=== PATIENT | female | born 1960 | race Caucasian/White ===

== ENCOUNTER 2022-03-15 08:57 | Outpatient (CLI) | payer OTHER, SELFPAY ==
[2022-03-15 13:38] LABS: Aspartate Amino Transferase* 23 U/L (12-35); Cholesterol* 221 mg/dL (90-199)
[2022-03-15 13:39] LABS: Alanine Aminotransferase* 20 U/L (4-35); HDL Cholesterol* 47 mg/dL (>=50); LDL Cholesterol Calculated 132 mg/dL (<100); Triglycerides* 210 mg/dL (40-149)
== END 2022-03-15 08:58 | disposition home or self-care (01) ==
PROVIDERS: PCP Physician Assistant Medical; Visit Provider Physician Assistant Medical
DX: E78.5 Hyperlipidemia, unspecified (principal)
CPT/HCPCS: 80061; 84450; 84460

== ENCOUNTER 2022-04-08 11:30 | Outpatient (CLI) | payer OTHER, SELFPAY ==
[2022-04-08 12:02] LABS: Blood Urea Nitrogen POC* 19 mg/dl (8-26); Carbon Dioxide Point of Care* 23 mmol/L (20-32); Chloride Point of Care* 107 mmol/L (98-109); Creatinine Point of Care* 0.7 mg/dl (0.6-1.3); Ionized Calcium Point of Care* 1.19 mmol/L (1.11-1.33); Potassium Point of Care* 4.2 mmol/L (3.5-4.9); Sodium Point of Care* 140 mmol/L (138-146)
[2022-04-08 12:03] LABS: Glucose IStat Point of Care 94 mg/dl (60-115)
[2022-04-08 12:12] LABS: Hematocrit 40.8 % (33.0-51.0); Hemoglobin* 13.6 gm/dL (12.0-16.0); Mean Corpuscular HGB Conc 33 gm/dL (32-36); Mean Corpuscular Hemoglobin 29 pg (26-34); Mean Corpuscular Volume 88 fL (80-100); Platelet Count* 212 K/uL (140-440); Red Blood Count 4.62 m/uL (4.00-5.20); White Blood Count* 8.82 K/uL (4.50-11.00)
[2022-04-08 12:16] LABS: Slide Review Reflex No
[2022-04-08 22:25] LABS: Vitamin B12* 257 pg/mL (243-894)
== END 2022-04-08 11:31 | disposition home or self-care (01) ==
PROVIDERS: PCP Physician Assistant Medical; Visit Provider Physician Assistant Medical
DX: I10 Essential (primary) hypertension (principal); E03.9 Hypothyroidism, unspecified; G89.29 Other chronic pain
CPT/HCPCS: 82607; 84443; 85027

== ENCOUNTER 2022-04-26 15:01 | Outpatient (CLI) | payer OTHER, SELFPAY ==
--- NOTE | 2022-04-26 15:20 | CRLHL7_ITS ---
For Patients: As a result of the Century Cures Act, medical imaging exams and procedure reports are released immediately into your electronic medical record. You may view this report before your referring provider. If you have questions, please contact your health care provider. BILATERAL SCREENING MAMMOGRAM WITH COMPUTER-AIDED DETECTION AND TOMOSYNTHESIS TECHNIQUE: CC and MLO views were obtained. These mammographic images have been obtained using full-field digital technique. These mammographic images were interpreted with the benefit of computer-aided detection. Breast Tomosynthesis was used in this interpretation. COMPARISON FILM: 05/26/18, 07/27/11, 05/06/10. FINDINGS: There are scattered areas of fibroglandular density IMPRESSION: There is no radiographic evidence for malignancy. ASSESSMENT: BI-RADS Category 1: Negative RECOMMENDATION: Routine screening mammogram in 1 year. A lay language report of this examination will be provided to the patient. Lc Malhotra M.D. Diagnostic Radiologist [email or web address] MIGUE LANGEL/Dictated by: Lc Malhotra MD @ 04/27/2022 9:12:00 AM (Electronically Signed)
== END 2022-04-26 15:02 | disposition home or self-care (01) ==
LOC: MAMMO 15:01
PROVIDERS: PCP Physician Assistant Medical; Visit Provider Physician Assistant Medical
DX: Z12.31 Encounter for screening mammogram for malignant neoplasm of breast (principal)
CPT/HCPCS: 77063; 77067

== ENCOUNTER 2023-11-08 08:52 | Outpatient (CLI) | payer BC, SELFPAY ==
--- NOTE | 2023-11-08 09:15 | MM_ITS ---
Patient: LIZETH JIMENEZ Facility:?[facility] Patient ID:?[id number] Site Patient ID:?[id number]. Site :?1960 Study:?XRay-Breast Bilateral 3D W/CAD-11/08/2023 9:32:18 AM Ordering Physician:Jessenia Final Report: BILATERAL SCREENING MAMMOGRAM WITH COMPUTER-AIDED DETECTION AND TOMOSYNTHESIS TECHNIQUE: CC and MLO views were obtained. These mammographic images have been obtained using full-field digital technique. These mammographic images were interpreted with the benefit of computer-aided detection. Breast Tomosynthesis was used in this interpretation. COMPARISON FILM: 04/26/22, 05/26/18, 07/27/11. FINDINGS: There are scattered areas of fibroglandular density. IMPRESSION: There is no radiographic evidence for malignancy. ASSESSMENT: BI-RADS Category 1: Negative RECOMMENDATION: Routine screening mammogram in 1 year. A lay language report of this examination will be provided to the patient. Lc Malhotra M.D. Diagnostic Radiologist [email or web address] TREVOR/sp R& Transcribed: 1:58 p.m. SP/Dictated by: Lc Malhotra MD @ 11/08/2023 12:25:00 PM Signed by:?cL Malhotra MD @11/08/2023 3:20:01 PM (Electronic Signature)
== END 2023-11-08 08:53 | disposition home or self-care (01) ==
LOC: MAMMO 08:54
PROVIDERS: PCP Physician Assistant Medical; Visit Provider Physician Assistant Medical
DX: Z12.31 Encounter for screening mammogram for malignant neoplasm of breast (principal)
CPT/HCPCS: 77063; 77067

== ENCOUNTER 2023-12-22 08:20 | Outpatient (CLI) | payer BC, SELFPAY | END 2023-12-22 08:21 | disposition home or self-care (01) | LOC: NFLDREF 01-10 12:56 | PROVIDERS: PCP Physician Assistant Medical; Referring Provider Physician Assistant Medical; Visit Provider Physician Assistant Medical | DX: E78.5 Hyperlipidemia, unspecified (principal); E03.9 Hypothyroidism, unspecified; I10 Essential (primary) hypertension | CPT/HCPCS: 80053; 80061; 84443 ==

== ENCOUNTER 2024-06-19 08:55 | Outpatient (CLI) | payer BC, SELFPAY ==
--- NOTE | 2024-06-19 09:15 | MR_ITS ---
[address] [address] Phone:?[phone] Fax:?[phone] Referring Physician Information: Vasile Ya M.D. [address] [facility] [address] Phone:?[phone] Fax:?[phone] Patient:Trista Ureña D.O.B:?1960 Sex:?Female Phone:?[phone] [facility] MRN:?[id number] Exam Date:?06/19/2024 EXAM: MRI of the RIGHT KNEE, without contrast CLINICAL: Right knee pain. Evaluate for medial meniscal tear. COMPARISONS: X-rays dated 05/10/2024. TECHNICAL: Multiplanar multisequence MRI of the right knee was obtained. SEDATION: None. CONTRAST: None. FINDINGS: Ligaments: ACL: Intact and unremarkable. PCL: Intact and unremarkable. MCL: Intact and unremarkable. LCL: Intact and unremarkable. Posterolateral corner: Popliteus, biceps femoris, iliotibial band, and the popliteofibular ligament appear intact. Posteromedial corner: Semimembranosus, pes anserine tendons and posterior oblique ligament appear intact. Extensor mechanism: Patellar tendon: Intact, without tendinopathy. Quadriceps tendon: Intact, without tendinopathy. Retinacula: Medial and lateral retinacula are intact. Fat pads: Unremarkable infrapatellar Hoffa's, quadriceps and prefemoral fat pads. Patellofemoral joint: Patella: There is full-thickness chondral loss involving the medial patellar facet and patellar median ridge with mild underlying subchondral edema/cystic change. There is moderate chondral thinning involving the lateral facet with focal deep chondral fissure involving the lateral facet on axial series 4 image 10. Small subchondral cystic change involving the peripheral lateral patellar facet also noted. Trochlea: There is mild heterogeneity of the trochlear cartilage. No chondral defect. Medial compartment: Medial meniscus: There is high-grade convex tearing involving the posterior root on sagittal series 6 images 18-19. Slight 2 mm of medial extrusion of the peripheral body segment. Medial cartilage: Grade 3 chondral loss involves the weightbearing extending into the junction with the posterior nonweightbearing medial femoral condyle. Medial tibial plateau cartilage is maintained. Lateral compartment: Lateral meniscus: No evidence of discrete meniscal tear or meniscal displacement. Lateral cartilage: There is heterogeneity of the lateral tibial plateau. No chondral defects. Knee joint: Effusion: Small right knee effusion. Intra-articular bodies:?Small intra-articular body within the posterior joint recess adjacent to the PCL as seen on sagittal series 5 image 18. Popliteal cyst: None. Bones: Mild reactive marrow edema and small cystic change involves the lateral aspect of the posterior medial tibial plateau. No evidence of fracture. IMPRESSION: 1. High-grade complex tearing involving the posterior root medial meniscus with slight medial extrusion of the peripheral body segment medial meniscus. 2. Full-thickness chondral loss involving the patella with grade 3 chondral loss involving the medial femoral condyle. 3. Small joint effusion with a small intra-articular body within the posterior joint recess. 4. No evidence of ligamentous injury or fracture. JCZ Electronically signed on 06/19/2024 11:28:00 AM by Zen Tijerina D.O.
--- NOTE | 2024-06-19 10:15 | MR_ITS ---
[address] [address] Phone:?[phone] Fax:?[phone] Referring Physician Information: Vasile Ya M.D. [address] [facility] [address] Phone:?[phone] Fax:?[phone] Patient:Trista Ureña D.O.B:?1960 Sex:?Female Phone:?[phone] [facility] MRN:?[id number] Exam Date:?06/19/2024 EXAM: MRI of the LEFT KNEE, without contrast CLINICAL: Left knee pain. Evaluate for medial meniscal tear. COMPARISONS: X-rays dated 05/10/2024. TECHNICAL: Multiplanar multisequence MRI of the left knee was obtained. SEDATION: None. CONTRAST: None. FINDINGS: Ligaments: ACL: Intact and unremarkable. PCL: Intact and unremarkable. MCL: Intact and unremarkable. LCL: Intact and unremarkable. Posterolateral corner: Popliteus, biceps femoris, iliotibial band, and the popliteofibular ligament appear intact. Posteromedial corner: Semimembranosus, pes anserine tendons and posterior oblique ligament appear intact. Extensor mechanism: Patellar tendon: Intact, without tendinopathy. Quadriceps tendon: Intact, without tendinopathy. Retinacula: Medial and lateral retinacula are intact. Fat pads: Unremarkable infrapatellar Hoffa's, quadriceps and prefemoral fat pads. Patellofemoral joint: Patella: There is full-thickness chondral loss involving the medial facet and patellar median ridge with mild underlying subchondral reactive edema. Trochlea: No significant chondromalacia. Medial compartment: Medial meniscus: There is high-grade complex tearing involving the posterior root as seen on sagittal series 6 image 13-14 and coronal series 8 images 21-22. Horizontal dominant undersurface tearing involves the body extending into the junction with the posterior horn on coronal series 8 image 17-20 and sagittal series 6 image 9. There is slight 2 mm of medial extrusion of the peripheral body segment medial meniscus. Small parameniscal cyst along the periphery of the body segment adjacent to the MCL noted on coronal series 8 image 17-18 and axial series 4 images 17-18. Medial cartilage: Grade 3 chondral loss involves the weightbearing extending into the junction with the posterior nonweightbearing medial femoral condyle. Grade 2-3 chondral thinning also involves the peripheral medial tibial plateau. Lateral compartment: Lateral meniscus: No evidence of discrete meniscal tear or meniscal displacement. Lateral cartilage: There is heterogeneity of the lateral tibial plateau cartilage. No chondral defects. Knee joint: Effusion: Small left knee effusion. Intra-articular bodies:?No convincing bodies identified. Popliteal cyst: None. Bones: No suspicious bone marrow signal alteration or fracture line. IMPRESSION: 1. Tearing of the medial meniscus as above with slight medial extrusion of the peripheral body segment. 2. Full-thickness chondral loss involving the patella with grade 2 and 3 chondral loss involving the medial compartment. 3. Small joint effusion. 4. No evidence of ligamentous injury or fracture. JCZ Electronically signed on 06/19/2024 11:22:00 AM by Zen Tijerina D.O.
== END 2024-06-19 08:56 | disposition home or self-care (01) ==
LOC: MRI 08:56
PROVIDERS: PCP Physician Assistant Medical; Visit Provider Orthopaedic Surgery Sports Medicine
DX: M25.561 Pain in right knee (principal); S83.231A Complex tear of medial meniscus, current injury, right knee, initial encounter; M25.461 Effusion, right knee; M25.562 Pain in left knee; S83.222A Peripheral tear of medial meniscus, current injury, left knee, initial encounter; M25.462 Effusion, left knee
CPT/HCPCS: 73721

== ENCOUNTER 2025-01-08 08:50 | Outpatient (CLI) | payer BC, SELFPAY | END 2025-01-08 08:51 | disposition home or self-care (01) | LOC: NFLDREF 01-10 18:45 | PROVIDERS: PCP Physician Assistant Medical; Referring Provider Physician Assistant Medical; Visit Provider Physician Assistant Medical | DX: R73.03 Prediabetes (principal); E78.2 Mixed hyperlipidemia; E03.9 Hypothyroidism, unspecified; I10 Essential (primary) hypertension | CPT/HCPCS: 80053; 80061; 84443 ==

== ENCOUNTER 2025-01-10 12:45 | Outpatient (CLI) | payer BC, SELFPAY ==
[2025-01-13 00:58] LABS: HPV Source Cervical; HPV, High Risk by TMA Not Detected
== END 2025-01-10 12:46 | disposition home or self-care (01) ==
PROVIDERS: PCP Physician Assistant Medical; Visit Provider Physician Assistant Medical
DX: Z11.51 Encounter for screening for human papillomavirus (HPV) (principal); Z12.4 Encounter for screening for malignant neoplasm of cervix
CPT/HCPCS: 87624; 87625; 88141; 88142

== ENCOUNTER 2025-02-12 09:44 | Outpatient (CLI) | payer BC, SELFPAY ==
--- NOTE | 2025-02-12 10:00 | CRLHL7_ITS ---
For Patients: As a result of the Cures Act, medical imaging exams and procedure reports are released immediately into your electronic medical record. You may view this report before your referring provider. If you have questions, please contact your health care provider. INDICATION: Lung cancer screening. History of smoking. TECHNIQUE: Low-dose lung cancer screening non-contrast CT chest. Dose reduction techniques were used. COMPARISON: None. FINDINGS: NODULES: Multiple calcified left lower lobe pulmonary nodules. LUNGS AND PLEURA: Emphysema. MEDIASTINUM: No adenopathy. Calcified mediastinal and left hilar lymph nodes. CORONARY ARTERY CALCIFICATION: Moderate. LIMITED UPPER ABDOMEN: Calcification associated with the spleen. MUSCULOSKELETAL: No fracture. Discogenic spurring with bridging osteophytes. IMPRESSION: Negative for lung cancer screening purposes. LUNG-RADS CATEGORY: 2: Benign. Continue annual screening, if eligible, with low-dose CT chest in 12 months. Please note that all CT scans at this facility use dose modulation, iterative reconstruction, and/or weight-based dosing when appropriate to reduce radiation dose to as low as reasonably achievable. Dictated by Lc Malhotra MD @ 02/12/2025 3:19:15 PM (Electronically Signed)
== END 2025-02-12 09:45 | disposition home or self-care (01) ==
LOC: CT 09:45
PROVIDERS: PCP Physician Assistant Medical; Visit Provider Physician Assistant Medical
DX: Z12.2 Encounter for screening for malignant neoplasm of respiratory organs (principal); Z72.0 Tobacco use
CPT/HCPCS: 71271

== ENCOUNTER 2025-04-03 11:16 | Outpatient (CLI) | payer BC, SELFPAY ==
--- NOTE | 2025-04-03 11:30 | CRLHL7_ITS ---
For Patients: As a result of the Century Cures Act, medical imaging exams and procedure reports are released immediately into your electronic medical record. You may view this report before your referring provider. If you have questions, please contact your health care provider. INDICATION: BILATERAL SCREENING MAMMOGRAM, ASYMPTOMATIC 64 Y/O FEMALE COMPARISON: 11/08/2023, 04/26/2022 TECHNIQUE: Digital mammogram in CC and MLO projections including computer-aided detection (CAD) and tomosynthesis. BREAST COMPOSITION: There are scattered areas of fibroglandular density. FINDINGS: No suspicious findings. ASSESSMENT: BI-RADS 1 Negative RECOMMENDATION: Annual screening mammogram. A lay language report of this examination will be provided to the patient. Dictated by: Lc Malhotra MD @ 04/03/2025 12:13:01 (Electronically Signed)
== END 2025-04-03 11:17 | disposition home or self-care (01) ==
LOC: MAMMO 11:16
PROVIDERS: PCP Physician Assistant Medical; Visit Provider Physician Assistant Medical
DX: Z12.31 Encounter for screening mammogram for malignant neoplasm of breast (principal)
CPT/HCPCS: 77063; 77067